=== PATIENT | female | born 1985 | race Caucasian/White ===

== ENCOUNTER 2018-02-21 22:01 | Emergency (ER) | payer OTHER ==
[~2018-02-21] VITALS: Ht 152.4 cm; Wt 49.0 kg
[~2018-02-21 22:01] MED LIST: ACETAMINOP650 MG/SUP RC; CYCLOBENZAPRINE10 MG PO; PEPCID40 MG PO; PROMETHAZI RC; SKELAXIN800 MG PO; ZITHROMAX TRI-500 MG PO; ZITHROMAX500 MG PO
[2018-02-22] MEDS ORDERED: VISTARIL25 MG PO (02:07)
== END 2018-02-22 02:10 | disposition home or self-care (01) ==
LOC: ER 22:01
DX: M94.0 Chondrocostal junction syndrome [Tietze] (principal); R20.0 Anesthesia of skin; M79.602 Pain in left arm; M54.2 Cervicalgia

== ENCOUNTER 2019-04-15 14:50 | Emergency (ER) | payer OTHER ==
[~2019-04-15] VITALS: Ht 152.4 cm; Wt 49.9 kg
[~2019-04-15 14:50] MED LIST changes: +VISTARIL25 MG PO
== END 2019-04-15 19:57 | disposition home or self-care (01) ==
LOC: ER 14:50
DX: J11.1 Influenza due to unidentified influenza virus with other respiratory manifestations (principal)

== ENCOUNTER 2019-05-31 11:11 | Emergency (ER) | payer OTHER ==
[~2019-05-31] VITALS: Ht 152.4 cm; Wt 50.8 kg
== END 2019-05-31 16:32 | disposition home or self-care (01) ==
LOC: ER 11:11
DX: B34.9 Viral infection, unspecified (principal)

== ENCOUNTER 2019-09-27 21:24 | Emergency (ER) | payer OTHER ==
[~2019-09-27] VITALS: Ht 149.9 cm; Wt 52.6 kg
== END 2019-09-27 22:26 | disposition home or self-care (01) ==
LOC: ER 21:24
DX: T50.991A Poisoning by other drugs, medicaments and biological substances, accidental (unintentional), initial encounter (principal); J02.8 Acute pharyngitis due to other specified organisms; Y92.89 Other specified places as the place of occurrence of the external cause

== ENCOUNTER 2020-01-22 03:46 | Emergency (ER) | payer OTHER ==
[~2020-01-22] VITALS: Ht 152.4 cm; Wt 52.2 kg
[2020-01-22] MEDS ORDERED: METFORMIN HCL500 M4 PO (06:28)
== END 2020-01-22 06:40 | disposition home or self-care (01) ==
LOC: ER 03:46
DX: E86.0 Dehydration (principal); R00.2 Palpitations; Z03.818 Encounter for observation for suspected exposure to other biological agents ruled out

== ENCOUNTER 2020-01-26 19:06 | Emergency (ER) | payer OTHER ==
[~2020-01-26] VITALS: Ht 152.4 cm; Wt 52.2 kg
[~2020-01-26 19:06] MED LIST changes: +METFORMIN HCL500 M4 PO
== END 2020-01-26 22:42 | disposition home or self-care (01) ==
LOC: ER 19:06
DX: F06.4 Anxiety disorder due to known physiological condition (principal)

== ENCOUNTER 2020-02-20 01:33 | Emergency (ER) | payer OTHER ==
[~2020-02-20] VITALS: Ht 152.4 cm; Wt 52.2 kg
[2020-02-20] MEDS ORDERED: PEPCID40 MG PO (05:46)
[2020-02-20] MEDS ORDERED: PROTONIX40 MG PO (05:46)
[2020-02-20] MEDS ORDERED: ZOFRAN4 MG PO (05:49)
== END 2020-02-20 05:58 | disposition home or self-care (01) ==
LOC: ER 01:33
DX: K29.60 Other gastritis without bleeding (principal)

== ENCOUNTER 2020-04-12 12:13 | Emergency (ER) | payer OTHER ==
[~2020-04-12] VITALS: Ht 152.4 cm; Wt 53.5 kg
[~2020-04-12 12:13] MED LIST changes: +PROTONIX40 MG PO; +ZOFRAN4 MG PO
== END 2020-04-12 17:18 | disposition home or self-care (01) ==
LOC: ER 12:13
DX: R00.2 Palpitations (principal); R25.1 Tremor, unspecified; F41.0 Panic disorder [episodic paroxysmal anxiety]

== ENCOUNTER 2021-01-08 23:04 | Emergency (ER) | payer OTHER ==
[~2021-01-08] VITALS: Ht 152.4 cm; Wt 46.3 kg
[2021-01-09] MEDS ORDERED: DOLOGESIC 500-1 EACH PO (01:56)
== END 2021-01-09 02:00 ==
LOC: ER 23:04
DX: S99.922A Unspecified injury of left foot, initial encounter (principal); X58.XXXA Exposure to other specified factors, initial encounter; Y92.89 Other specified places as the place of occurrence of the external cause

== ENCOUNTER 2021-06-21 04:02 | Emergency (ER) | payer OTHER ==
[~2021-06-21] VITALS: Ht 152.4 cm; Wt 52.2 kg
[~2021-06-21 04:02] MED LIST changes: +DOLOGESIC 500-1 EACH PO
== END 2021-06-21 08:20 ==
LOC: ER 04:02
DX: R00.2 Palpitations (principal); Z88.8 Allergy status to other drugs, medicaments and biological substances

== ENCOUNTER 2021-11-08 18:05 | Emergency (ER) | payer OTHER ==
[~2021-11-08] VITALS: Ht 152.4 cm; Wt 55.3 kg
== END 2021-11-08 22:44 | disposition home or self-care (01) ==
LOC: ER 18:05
DX: J06.9 Acute upper respiratory infection, unspecified (principal); Z20.822 Contact with and (suspected) exposure to COVID-19; Z88.8 Allergy status to other drugs, medicaments and biological substances

== ENCOUNTER 2022-04-08 19:00 | Emergency (ER) | payer OTHER ==
[~2022-04-08] VITALS: Ht 152.4 cm; Wt 58.5 kg
== END 2022-04-08 20:31 | disposition home or self-care (01) ==
LOC: ER 19:00
DX: I73.9 Peripheral vascular disease, unspecified (principal); R00.2 Palpitations; Z88.8 Allergy status to other drugs, medicaments and biological substances

== ENCOUNTER 2022-04-12 02:59 | Emergency (ER) | payer OTHER ==
[~2022-04-12] VITALS: Ht 152.4 cm; Wt 57.6 kg
== END 2022-04-12 04:12 | disposition home or self-care (01) ==
LOC: ER 02:59
DX: S01.521A Laceration with foreign body of lip, initial encounter (principal); W18.30XA Fall on same level, unspecified, initial encounter; Y93.9 Activity, unspecified; Y92.9 Unspecified place or not applicable; Z88.6 Allergy status to analgesic agent; Z91.013 Allergy to seafood

== ENCOUNTER 2023-02-25 00:14 | Emergency (ER) | payer OTHER ==
[~2023-02-25] VITALS: Ht 152.4 cm; Wt 63.0 kg
[2023-02-25] MEDS ORDERED: CEPHALEXIN500 MG PO (04:07)
== END 2023-02-25 05:06 | disposition home or self-care (01) ==
LOC: ER 00:14
DX: S61.012A Laceration without foreign body of left thumb without damage to nail, initial encounter (principal); X58.XXXA Exposure to other specified factors, initial encounter; Y93.89 Activity, other specified; Y92.89 Other specified places as the place of occurrence of the external cause; Y99.9 Unspecified external cause status; Z88.8 Allergy status to other drugs, medicaments and biological substances

== ENCOUNTER 2023-12-27 21:19 | Emergency (ER) | payer OTHER ==
[~2023-12-27] VITALS: Ht 152.4 cm; Wt 53.5 kg
[~2023-12-27 21:19] MED LIST changes: +CEPHALEXIN500 MG PO
[2023-12-27] MEDS ORDERED: TRAMADOL HCL E100 M1 PO (23:26)
[2023-12-27] MEDS ORDERED: TRAMADOL HCL 50 MG TABLET PO ONE (23:30)
== END 2023-12-27 23:59 | disposition home or self-care (01) ==
LOC: ER 21:21
DX: S62.101A Fracture of unspecified carpal bone, right wrist, initial encounter for closed fracture (principal); W19.XXXA Unspecified fall, initial encounter; Y93.89 Activity, other specified; Y92.89 Other specified places as the place of occurrence of the external cause; Y99.8 Other external cause status; M21.931 Unspecified acquired deformity of right forearm; Z88.6 Allergy status to analgesic agent; Z88.8 Allergy status to other drugs, medicaments and biological substances; Z91.013 Allergy to seafood

== ENCOUNTER → 2024-02-02 | Emergency (ER) | payer OTHER ==
[~2024-02-02] VITALS: Ht 152.4 cm; Wt 52.6 kg
[~2024-02-02] MED LIST changes: +TRAMADOL HCL E100 M1 PO
[2024-02-02 00:14] VITALS: BP 121/78; O2SAT 100
== END | disposition left against medical advice (07) ==
LOC: ER 00:05
DX: Z53.21 Procedure and treatment not carried out due to patient leaving prior to being seen by health care provider (principal)

== ENCOUNTER → 2024-07-17 | Emergency (ER) | payer OTHER ==
[~2024-07-17] VITALS: Ht 152.4 cm; Wt 50.3 kg
[~2024-07-17] MED LIST changes: +ZOFRAN8 MG PO
== END | disposition left against medical advice (07) ==
LOC: ER 00:33
DX: Z53.21 Procedure and treatment not carried out due to patient leaving prior to being seen by health care provider (principal)

== ENCOUNTER 2024-07-19 22:57 | Emergency (ER) | payer OTHER ==
[~2024-07-19] VITALS: Ht 152.4 cm; Wt 49.9 kg
[~2024-07-19 22:57] MED LIST changes: -ZOFRAN8 MG PO
[2024-07-20] MEDS ORDERED: FAMOTIDINE/PF 20 MG/2 ML VIAL IV PUSH STA (00:47)
[2024-07-20] MEDS ORDERED: PROMETHAZINE HCL 50 MG/ML AMPUL IM STA (00:47)
[2024-07-20] MEDS ORDERED: 0.9 % SODIUM CHLORIDE 1,000 ML IV ONE (01:00)
[2024-07-20] MEDS ORDERED: PROMETHAZINE HCL 50 MG/ML AMPUL IM ONE (01:07)
[2024-07-20] MEDS ORDERED: FAMOTIDINE/PF 20 MG/2 ML VIAL ONE (01:07)
[2024-07-20 02:04] LABS: HEMATOCRIT 42.1 % (36.0-45.00); HEMOGLOBIN 14.7 g/dL (12.0-15.00); MEAN CELL VOLUME 87.6 fL (80.00-100.00); MEAN CORPUSCULAR HEMOGLOBIN 30.5 pg (27.00-32.0); MEAN CORPUSCULAR HGB CONC 34.9 g/dl (32.0-36.0); PLATELET COUNT 182 K/uL (150-450); RED BLOOD COUNT 4.81 M/uL (4.00-6.00); RED CELL DISTRIBUTION WIDTH 12.7 % (11.5-14.5)
[2024-07-20 03:22] LABS: ALBUMIN 4.2 gm/dL (3.4-5.0); BILIRUBIN TOTAL 0.61 mg/dL (0.3-1.2); CALCIUM 9.4 mg/dL (8.5-10.1); CREATININE SERUM 0.55 mg/dL (0.55-1.02); GFR 123.7; GLOBULINA 3.4 G/DL (2.4-3.5); POTASSIUM 3.9 mEq/L (3.5-5.1); TOTAL PROTEIN 7.6 gm/dL (6.4-8.2)
[2024-07-20] MEDS ORDERED: ZOFRAN8 MG PO (04:56)
== END 2024-07-20 05:10 ==
LOC: ER 22:58
PROVIDERS: General Practice
DX: R11.10 Vomiting, unspecified (principal); Z88.6 Allergy status to analgesic agent; Z88.8 Allergy status to other drugs, medicaments and biological substances; Z91.013 Allergy to seafood

== ENCOUNTER → 2024-09-17 | Emergency (ER) | payer OTHER ==
[~2024-09-17] MED LIST changes: +ZOFRAN8 MG PO
== END | disposition left against medical advice (07) ==
LOC: ER 09:25
DX: Z53.21 Procedure and treatment not carried out due to patient leaving prior to being seen by health care provider (principal)